=== PATIENT | male | born 1995 | race Two or more races ===

== ENCOUNTER 2024-06-25 20:36 | Emergency (ER) | payer SELFPAY ==
[~2024-06-25] VITALS: Ht 167.6 cm; Wt 72.6 kg
[2024-06-25 20:44] VITALS: BP 153/95; PULSE 88; RESP 21; O2SAT 98
== END 2024-06-25 23:37 | disposition left against medical advice (07) ==
LOC: EDBD 20:36 → ER 20:36
DX: S50.02XA Contusion of left elbow, initial encounter (principal); V49.88XA Car occupant (driver) (passenger) injured in other specified transport accidents, initial encounter; Y93.89 Activity, other specified; Y92.89 Other specified places as the place of occurrence of the external cause; Y99.8 Other external cause status